=== PATIENT | male | born 1945 | race Caucasian/White ===

== ENCOUNTER → 2018-03-15 | Outpatient (CLI) | payer BC ==
[~2018-03-15] MED LIST: AMLO-96 PO; ASP325 PO; ASPI81TA94 PO; HYDR-2966 PO; HYDR12.556 PO; IBUP200C74 PO; IRBE300T11 PO; LOSA50TA72 PO; MULT-820 PO; NIA500 PO; PRAV20TA65 PO
--- NOTE | 2018-03-15 10:31 | RADIOLOGY IMAGING REPORT ---
FACILITY: [facility] PATIENT NAME: Robbi Robles : 1945 MR: [id number] V: [id number] EXAM DATE: ORDERING PHYSICIAN: RAMIREZ CARTER TECHNOLOGIST: Location: [facility] Patient: Robbi Robles : 1945 Visit/Account:[id number] Date of Sevice: 03/15/2018 LIVER HISTORY: Elevated LFTs COMPARISON: CT and pelvis fibroid first 2010 FINDINGS: Gallbladder: Unremarkable; no stones or sludge. Liver: There is increased echogenicity throughout liver which can be seen with fatty infiltration oth er infiltrative process. Discrete mass not demonstrated. Common duct: Normal, 3.6 mm diameter. Pancreas: Pancreatic duct mildly prominent at 4.8 mm. Pancreatic tail is heterogeneous and slightly prominent although discrete mass was not demonstrated Right kidney: Is a lobular contour to the right kidney although no evidence of hydronephrosis. Right kidney measures 12.7 cm in length Upper abdominal aorta and IVC: Patent. Ascites: None visualized. IMPRESSION: Increased echogenicity throughout the liver which can be seen with fatty infiltration or other infilt rative process The tail the pancreas appears prominent and heterogeneous although discrete mass is not seen. The pa ncreatic duct is mildly prominent at 4.7 mm. Lobular contour to the right kidney although appears similar to the prior CT Report Dictated By: Marnie Sevilla MD at 03/15/2018 9:58 AM Report E-Signed By: Marnie Sevilla MD at 03/15/2018 10:26 AM WSN:[email or web address]
== END ==
LOC: US 01:02
PROVIDERS: ATTEND Internal Medicine
DX: K76.0 Fatty (change of) liver, not elsewhere classified (principal); N28.89 Other specified disorders of kidney and ureter
CPT/HCPCS: 76705

== ENCOUNTER 2018-04-28 00:56 | Day surgery (SDC) | payer BC ==
[~2018-04-28] VITALS: Ht 181.6 cm; Wt 93.4 kg
--- NOTE | 2018-04-28 06:59 | Post Operative Progress Note ---
Post Operative Progress Note Date: Apr 28, 2018 Time: 10:41 Surgeon: maria eugenia Anesthesia: dr robert Pre-Op Diagnosis: screening colonoscopy Post-Op Diagnosis: diverticulosis Procedure(s): colonoscopy LUIS HDZ MD Apr 28, 2018 06:59
--- NOTE | 2018-04-28 07:00 | Short(Outpt) Discharge Summary ---
Discharge Summary Reason for Hosp/Final Diag: (1) Encounter for screening colonoscopy Hospital Course & Plan: diverticulosis Departure Discharge to: Home Discharge Instructions Home Meds Active Scripts Pravastatin Sodium (PRAVACHOL) 20 Mg Tablet, 20 MG PO QDAY, #90 TAB 3 Refills Prov:RAMIREZ CARTER MD 03/11/18 Losartan Potassium (LOSARTAN POTASSIUM) 50 Mg Tablet, 50 MG PO QDAY, #90 TAB 3 Refills Prov:RAMIREZ CARTER MD 03/11/18 Hydrochlorothiazide (HYDROCHLOROTHIAZIDE) 12.5 Mg Capsule, 1 TAB PO QDAY, #90 CAPSULE 3 Refills Prov:RAMIREZ CARTER MD 03/11/18 Amlodipine Besylate (AMLODIPINE BESYLATE) 5 Mg Tablet, 1 TAB PO QDAY, #90 TAB 3 Refills Prov:RAMIREZ CARTER MD 03/11/18 Reported Medications Ibuprofen (ADVIL) 200 Mg Capsule, 1-2 CAP PO QDAY Y for pain, CAPSULE 03/11/18 Aspirin (ASPIRIN) 81 Mg Tab.chew, 81 MG PO QDAY, TAB.CHEW 03/11/18 Multivitamins (Multivitamin) 1 Tab Tablet, 1 TAB PO DAILY 03/07/08 Diet: High Fiber Activity: As Tolerated LUIS HDZ MD Apr 28, 2018 07:00
[2018-04-28 09:15] VITALS: BP 163/97
[2018-04-28] MEDS ORDERED: NORMOSOL R SOLN(*) 1000 ML BAG 1,000 ML IV PRN (09:40)
[2018-04-28] MEDS ORDERED: LIDOCAINE/SOD BICARB 8.4% SYR ID ONE (09:40)
[2018-04-28 10:43] VITALS: BP 118/78
[2018-04-28 11:00] VITALS: BP 113/75
[2018-04-28 11:15] VITALS: BP 137/91
[2018-04-28 11:19] VITALS: BP 139/91
[2018-04-28 11:26] VITALS: BP 122/93
--- NOTE | 2018-04-28 11:57 | OPERATIVE REPORT 1 ---
EVENT DATE: 04/28/18 SURGEON: Keyshawn Garza M.D. ANESTHESIOLOGIST: Dr. Mendez ANESTHESIA: Sedation PREOPERATIVE DIAGNOSIS 1. Screening colonoscopy. POSTOPERATIVE DIAGNOSIS 1. Diverticulosis in the left colon mainly and a few in the right colon. PROCEDURE PERFORMED 1. Colonoscopy. DESCRIPTION OF PROCEDURE: The patient was placed in the left lateral decubitus position given intravenous sedation. Rectal exam was unremarkable. The flexible colonoscope was inserted and advanced to the cecum. He had excellent bowel prep. The ileocecal valve, base of the cecum, appendiceal orifice were identified. The scope was slowly withdrawn. Care was taken to look behind the haustral folds. He had a few diverticula in the right colon. The transverse colon appeared to be normal. In the descending and sigmoid colon he had diverticulosis noted and some diverticulitis. The rectum was normal. The scope was retroflexed. That appeared to be normal. The patient will require a repeat colonoscopy in 10 years. [facility]ITAL[facility]
== END 2018-04-28 11:30 | disposition home or self-care (01) ==
LOC: OR 00:56
PROVIDERS: ATTEND Surgery
DX: Z12.11 Encounter for screening for malignant neoplasm of colon (principal); K57.30 Diverticulosis of large intestine without perforation or abscess without bleeding; K57.32 Diverticulitis of large intestine without perforation or abscess without bleeding; I10 Essential (primary) hypertension; E78.5 Hyperlipidemia, unspecified; Z80.0 Family history of malignant neoplasm of digestive organs
CPT/HCPCS: 00812; G0121

== ENCOUNTER → 2019-01-05 | Outpatient (CLI) | payer BC ==
[~2019-01-05] MED LIST changes: +AMLO-125 PO; -AMLO-96 PO; +AZIT-17 PO; -LOSA50TA72 PO; +LOSA50TA80 PO; +PRED20TA6 PO
--- NOTE | 2019-01-05 12:27 | RADIOLOGY IMAGING REPORT ---
FACILITY: [facility] [place] PATIENT NAME: Robbi Robles : 1945 MR: [id number] V: [id number] EXAM DATE: ORDERING PHYSICIAN: RAMIREZ CARTER TECHNOLOGIST: Location: [facility] [place] Patient: Rbobi Robles : 1945 Visit/Account:[id number] Date of Sevice: 01/05/2019 Exam type: CHEST PA LAT History: Cough, bronchitis, congestion x2 weeks Comparison: March 19, 2014. Findings: There is mild hyperinflation of the lung rodriguez. There is no evidence of acute appearing infiltrates pleural effusions or pulmonary edema. There is mild discoid atelectasis in the medial left lung bas e. The cardiac silhouette is normal. There are spondylotic changes of the thoracic spine IMPRESSION: 1. Small band of discoid atelectasis in the medial left lung base Report Dictated By: Marnie Sevilla MD at 01/05/2019 12:23 PM Report E-Signed By: Marnie Sevilla MD at 01/05/2019 12:24 PM WSN:[email or web address]
== END ==
LOC: RESP 11:09
PROVIDERS: ATTEND Internal Medicine
DX: J40 Bronchitis, not specified as acute or chronic (principal)
CPT/HCPCS: 71046